=== PATIENT | male | born 1940 | race Caucasian/White ===

== ENCOUNTER 2017-04-22 09:45 | Outpatient (CLI) | payer MEDICARE ==
[~2017-04-22 09:45] MED LIST: AMARYL 2MG TABLE2 MG PO; BLOOD PRESSURE MED; CARVEDILOL6.25 MG PO; GLUCOPHAGE500 MG PO; LEVOTHYROXINE0.1 M2 PO; LISINOPRIL/HCTZ1 TA1 PO; LISINOPRIL/HCTZ1 TA3 PO; PROTONIX 40MG T40 MG PO
[2017-04-22 09:58] VITALS: BP 170/102
[2017-04-22 10:30] VITALS: BP 164/107
[2017-04-22 11:07] VITALS: BP 162/97
[2017-04-22] MEDS ORDERED: LISINOPRIL 5MG T5 MG PO (15:38)
[2017-04-22] MEDS ORDERED: DIABETA5 MG PO (15:39)
[2017-04-22] MEDS ORDERED: ASPIR 8181 MG PO (15:40)
== END 2017-04-22 11:15 | disposition home or self-care (01) ==
LOC: COP 09:45
DX: D50.9 Iron deficiency anemia, unspecified (principal); K29.70 Gastritis, unspecified, without bleeding
CPT/HCPCS: J1756

== ENCOUNTER 2017-05-06 10:50 | Outpatient (CLI) | payer MEDICARE ==
[~2017-05-06 10:50] MED LIST changes: +ASPIR 8181 MG PO; +DIABETA5 MG PO; +LISINOPRIL 5MG T5 MG PO
[2017-05-06 11:44] VITALS: BP 149/82
[2017-05-06 11:50] VITALS: BP 158/88
[2017-05-06 12:30] VITALS: BP 171/82
== END 2017-05-06 12:30 | disposition home or self-care (01) ==
LOC: COP 10:50
DX: K29.70 Gastritis, unspecified, without bleeding (principal); D50.9 Iron deficiency anemia, unspecified
CPT/HCPCS: J1756